=== PATIENT | female | born 1955 | race Caucasian/White ===

== ENCOUNTER 2018-03-28 06:57 | Day surgery (SDC) | payer MEDICARE, OTHER ==
[~2018-03-28] VITALS: Ht 160 cm; Wt 78.5 kg
[~2018-03-28 06:57] MED LIST: DICLOFENAC SODI75 MG PO; LIOTHYRONINE SO5 MCG PO; LISINOPRIL20 MG PO; LOVASTATIN40 MG PO; NAPROXEN500 MG PO; PERCOCET 5-3251 EACH PO; TRIAMTERENE-HC1 EAC3 PO; ZOLPIDEM TARTRA10 MG PO; ZYLOPRIM300 MG PO
[2018-03-28] MEDS ORDERED: LOSARTAN POTASS50 MG PO (07:12)
[2018-03-28] MEDS ORDERED: ATORVASTATIN CA40 MG PO (07:12)
[2018-03-28] MEDS ORDERED: CLARITIN5 MG PO (07:15)
[2018-03-28] MEDS ORDERED: FISH OIL 1,0001 EAC3 PO (07:15)
[2018-03-28] MEDS ORDERED: MULTI VITAMIN1 EACH PO (07:15)
--- NOTE | 2018-03-28 09:06 | NUR ---
03/28/18 0906 Tessa Desai 0902-PATIENT ARRIVED TO PACU REACTIVE TO VOICE EYES OPEN DENIES PAIN OR NAUSEA. RR EVEN. 2L NC. ENCOURAGED TO PASS GAS. REPOSITIONED SELF ONTO BACK
--- NOTE | 2018-03-28 11:24 | OR ---
[facility] [address], [place] [address] Signed DATE OF OPERATION: 03/28/2018 SURGEON: Stacey Hardwick MD PREOPERATIVE DIAGNOSES: 1. Maternal grand father with colon cancer. 2. Internal and external hemorrhoids. 3. Constipation. POSTOPERATIVE DIAGNOSES: 1. A 4 mm polyp at 78 cm. 2. Minimal to moderate sigmoid diverticulosis. 3. Minimal external hemorrhoids. 4. Minimal to moderate internal hemorrhoids. PROCEDURE: Colonoscopy with hot biopsy. ESTIMATED BLOOD LOSS: None. INDICATIONS: Olya is a 63-year-old female asked to see me for a followup colonoscopy. Her maternal grandfather has a history of colon cancer. Her last colonoscopy was in 2005. She is known to have internal and external hemorrhoids along with some constipation. Although more recently, I think her bowel habits are better. I had met with Olya in the office and I gave her a pamphlet on colonoscopy. We had reviewed the nature of the test along with the risks including, but not limited to gas bloating, crampy abdominal pain, bleeding, perforation, requiring surgery, and missed diagnosis. We also discussed the need for IV conscious sedation. She had expressed understanding and wished to proceed. PROCEDURE NOTE: Olya was taken into our endoscopy suite and placed in the left lateral decubitus position. She was given IV sedation with 9 mg of Versed and 150 mcg of fentanyl. A digital rectal exam was performed and she does have some minimal external hemorrhoids. The adult colonoscope was introduced and advanced all the way around into the cecum under direct visualization of camera. It took some extra sedation and abdominal compression to get through the sigmoid colon and into the cecum itself. Her prep was good. The scope was slowly withdrawn. Pictures were taken throughout for photodocumentation. We encountered her small polyp back at 78 cm and it was easily Electronically Signed By: STACEY HARDWICK MD 03/28/18 1124 PATIENT NAME: OLYA ABRAHAM OPERATIVE REPORT DATE OF : 51 REPORT #: [id number] PHYSICIAN: STACEY HARDWICK MD PCP: JERI MURILLO DO REPORT IS CONFIDENTIAL AND NOT TO BE RELEASED WITHOUT AUTHORIZATION [facility] [address], [place] [address] Signed removed with hot biopsy forceps. She also has diverticula in the sigmoid colon. They were minimal to moderate in size in number, and scattered about. The rectum itself was unremarkable. Upon retroflexion of the scope, she does have minimal to moderate internal hemorrhoids. After this, the gas was suctioned out and the colonoscope removed. Olya tolerated the procedure quite well. RECOMMENDATIONS: I will see Olya back in my office in 7 to 14 days to review her results. MD AMINATA Vega/JEANETTEL /[id number] cc: MD Neha Vega MD Copies: STACEY HARDWICK MD ~ Electronically Signed By: STACEY HARDWICK MD 03/28/18 1124 PATIENT NAME: OLYA ABRAHAM OPERATIVE REPORT DATE OF : 51 REPORT #: [id number] PHYSICIAN: STACEY HARDWICK MD PCP: JERI MURILLO DO REPORT IS CONFIDENTIAL AND NOT TO BE RELEASED WITHOUT AUTHORIZATION
== END 2018-03-28 09:40 | disposition home or self-care (01) ==
LOC: OPS 06:57 → DS 06:57 → OPS 08:15 → DS 08:15 → OPS 09:40
PROVIDERS: Colon & Rectal Surgery
PROC: 0DBE8ZX Excision of Large Intestine, Via Natural or Artificial Opening Endoscopic, Diagnostic (ICD-10-PCS; principal; 2018-03-28 08:15)
DX: Z12.11 Encounter for screening for malignant neoplasm of colon (principal); K57.30 Diverticulosis of large intestine without perforation or abscess without bleeding; K64.8 Other hemorrhoids; K64.4 Residual hemorrhoidal skin tags; G47.00 Insomnia, unspecified; I10 Essential (primary) hypertension; E78.5 Hyperlipidemia, unspecified; Z80.0 Family history of malignant neoplasm of digestive organs; Z79.899 Other long term (current) drug therapy
CPT/HCPCS: 88305; 99153; G0500; J2250; J3010; J7120

== ENCOUNTER 2023-11-30 06:46 | Day surgery (SDC) | payer MEDICARE, OTHER ==
[2023-11-28 10:29] VITALS: BP 139/74
[~2023-11-30] VITALS: Ht 160 cm; Wt 77.3 kg
[~2023-11-30 06:46] MED LIST changes: +ATORVASTATIN CA40 MG PO; +CLARITIN5 MG PO; +ELIQUIS2.5 MG PO; +FISH OIL 1,0001 EAC3 PO; +LACTATED RINGER'S 1,000 ML IV SCH; +LOSARTAN POTASS50 MG PO; +MULTI VITAMIN1 EACH PO; +TOPROL XL50 MG PO; +ZYRTEC10 M3 PO; +propofoL 200 MG/20 ML VIAL ONE
[2023-11-30 06:54] VITALS: BP 133/55
[2023-11-30] MEDS ORDERED: CALCIUM500 MG PO (06:56)
[2023-11-30] MEDS ORDERED: VITAMIN D350 MCG PO (06:57)
[2023-11-30] MEDS ORDERED: IBLOOD GLUCOSE TEST STRIP 1 EA TEST VI PRN (07:00)
[2023-11-30] MEDS ORDERED: LIDOCAINE HCL 1% 5 ML SDV INJ ONE (07:00)
--- NOTE | 2023-11-30 07:31 | NUR ---
VISITED DURING SPIRITUAL CARE ROUNDS. PT APPEARED TO BE SLEEPING. DID NOT DISTURB. PROVIDED PRAYER.
[2023-11-30] MEDS ORDERED: LACTATED RINGER'S 1,000 ML IV ONE (08:24)
--- NOTE | 2023-11-30 08:52 | NUR ---
11/30/23 0852 Tessa Desai 5667-PATIENT ARRIVED TO PACU ON 10L MASK PLACED ON 6L MASK RR EVEN NONAROUSABLE ORAL AIRWAY IN PLACE. PATIENT LAYING LEFT LATERAL ABDOMEN SOFT. SINUS SARAH HR UPPER 50'S. IVF INFUSING.
[2023-11-30 09:19] VITALS: BP 127/85
--- NOTE | 2023-11-30 09:49 | OR ---
[facility] [address], [place] [address] Signed DATE OF OPERATION: 11/30/2023 SURGEON: Stacey Hardwick MD PREOPERATIVE DIAGNOSES: 1. Maternal grandfather with colon cancer in his 60s. 2. Internal and external hemorrhoids. 3. Hyperplastic colonic polyps. 4. Diverticulosis. POSTOPERATIVE DIAGNOSES: 1. Minimal diverticulosis. 2. Minimal internal and external hemorrhoids. PROCEDURE: Colonoscopy without biopsy. ESTIMATED BLOOD LOSS: None. INDICATIONS: Olya is a 68-year-old female, asked to see me for a followup colonoscopy. She has no lower GI complaints. Her maternal grandfather had developed colon cancer in his 60s. I helped her in 2005 at the age of 50 for her colonoscopy. She had internal and external hemorrhoids. We repeated colonoscopy in 2019 at the age of 63. She had a 4 mm hyperplastic polyp and some internal and external hemorrhoids. She had just a little bit of diverticulosis. In the meantime, she has developed paroxysmal atrial fibrillation and some SVT. She is under evaluation for obstructive sleep apnea at this time. She is yet to receive those results. Her echocardiogram tests were fine. Her left ventricular ejection fraction is around 67% in April 2023. She is now retired school bus driver/mechanic and said that is going very well. In the office, I gave her a pamphlet on colonoscopy. We had reviewed the nature of the test. There is risk including, but not limited to gas bloating, crampy abdominal pain, bleeding, perforation requiring surgery, and missed diagnosis. We also reviewed the written instructions for the bowel prep line by line. We had her hold the Eliquis five days prior to the procedure. She also has a full round face and is under evaluation of obstructive sleep apnea. Consequently we did ask for monitored anesthesia care with propofol infusion. That proved to be mistry. Her heart rate was in the 50s from her metoprolol and it dropped down into the 40s during the procedure. She had expressed understanding and wished to proceed. Electronically Signed By: STACEY HARDWICK MD 11/30/23 0949 PATIENT NAME: OLYA ABRAHAM OPERATIVE REPORT DATE OF : 51 REPORT #: [id number] PHYSICIAN: STACEY HARDWICK MD PCP: NORMA COLVIN MD REPORT IS CONFIDENTIAL AND NOT TO BE RELEASED WITHOUT AUTHORIZATION [facility] [address] [place] [id number] Signed PROCEDURE IN DETAIL: Olya was taken into our endoscopy suite and placed in the left lateral decubitus position. She was given monitored anesthesia care with propofol infusion per our nurse assistant production manager. A digital rectal exam was performed. She has good sphincter tone. There are no masses. She has very minimal external circumferential hemorrhoids. The adult colonoscope was introduced and advanced through a mildly tortuous sigmoid colon. It took just a little extra effort and abdominal compression to get the scope down into the cecum itself. With that, she had dropped her heart rate in the 40s. We stopped for a minute and her heart rate came right back up into the 50s. Her prep was quite excellent. We could easily see the appendiceal orifice and the ileocecal valve. The scope was then slowly withdrawn. We took several pictures throughout for photodocumentation. She has just a few minimal diverticula in the sigmoid colon. Once in the rectum, the scope was retroflexed, she has very minimal internal hemorrhoid tissue. After this, the gas was suctioned out and the colonoscope removed. Olya tolerated the procedure quite well. RECOMMENDATIONS: Olya can follow up in 5 years for repeat screening colonoscopy. She should probably continue monitored anesthesia care in the future if indeed she has sleep apnea and her heart issues. Stacey Hardwick MD ALB/MODL /[id number] cc: MD Norma Vega MD Copies: STACEY HARDWICK MD ~ Electronically Signed By: STACEY HARDWICK MD 11/30/23 0949 PATIENT NAME: OLYA ABRAHAM OPERATIVE REPORT DATE OF : 51 REPORT #: [id number] PHYSICIAN: STACEY HARDWICK MD PCP: NORMA COLVIN MD REPORT IS CONFIDENTIAL AND NOT TO BE RELEASED WITHOUT AUTHORIZATION
== END 2023-11-30 09:25 | disposition home or self-care (01) ==
LOC: DS 06:46
PROVIDERS: ATTEND Colon & Rectal Surgery
PROC: 0DJD8ZZ Inspection of Lower Intestinal Tract, Via Natural or Artificial Opening Endoscopic (ICD-10-PCS; principal; 2023-11-30 08:15)
DX: K57.30 Diverticulosis of large intestine without perforation or abscess without bleeding (principal); K64.8 Other hemorrhoids; K64.4 Residual hemorrhoidal skin tags; I10 Essential (primary) hypertension; R73.9 Hyperglycemia, unspecified; E79.0 Hyperuricemia without signs of inflammatory arthritis and tophaceous disease; F51.01 Primary insomnia; G47.33 Obstructive sleep apnea (adult) (pediatric); I48.0 Paroxysmal atrial fibrillation; I47.10 Supraventricular tachycardia, unspecified; Z80.0 Family history of malignant neoplasm of digestive organs; Z79.899 Other long term (current) drug therapy; Z88.0 Allergy status to penicillin; Z88.8 Allergy status to other drugs, medicaments and biological substances
CPT/HCPCS: 00811; J2704; J7121